=== PATIENT | female | born 1960 | race Caucasian/White ===

== ENCOUNTER 2016-04-27 06:02 | Inpatient (IN) ==
[2016-04-27] MEDS ORDERED: Lidocaine 1% 20 ML MDV ID ONE (06:20)
[2016-04-27] MEDS ORDERED: CeFAZolin Pre 2,000 MG/100 ML 2,000 MG/100 ML BAG IVPB ONE (06:20)
[2016-04-27] MEDS ORDERED: Albuterol 2.5 MG/3 ML NEBULIZER IH ONE ×2 (06:20→13:23)
[2016-04-27] MEDS ORDERED: Heparin 1,000 UNITS/500 mL NS 0 ML ONE ×2 (06:49→07:16)
[2016-04-27] MEDS: Ringers Solution, Lactated 1,000 ML IVC SCH ×2 (06:50→14:25)
--- NOTE | 2016-04-27 07:13 | Anesthesia Evaluation PreOp ---
Date of Encounter: 04/27/16 Time of Encounter: 07:11 - Past History Planned Operation: Right CEA Cardiac History: Angina, HTN, Cardiac Stent Pulmonary History: Smoker, Pack/yr (90 pk yr), COPD, VALENCIA Dx (uses CPAP) POLITICAL ADVISOR History: TIA (no residual), Other (diabetic neuropathy, fairly advanced in feet) Other Medical History: Diabetes Type II Anesthesia History: No Prior Anesthetic Complications, Past Anesthesia (CTR, C/S ) Alcohol Use: none Drug use: none Medications and Allergies PredniSONE 60 mg PO ONCE 3 Days 02/18/16 [Rx] Tizanidine HCl [Zanaflex] 2 mg PO HS #14 cap 03/23/16 [Rx] Allergies tramadol Adverse Reaction (Verified 04/27/16 07:15) Vomiting - Meds/Allergy Pre-op Review Medications Reviewed: Yes Allergies Reviewed: Yes Beta Blockers on Current Med List: Yes If Beta Blockers taken, Date/Time (Last Dose taken): this morning 0530 Anesthesia Results - Labs Laboratory Tests 04/22/16 04/22/16 04/22/16 11:09 11:09 11:09 Hgb 12.9 Hct 38.5 Plt Count 256 PT 11.6 INR 1.1 APTT 34.9 Sodium 139 Potassium 3.9 BUN 8 Creatinine 0.67 - Imaging EKG: report reviewed (incomplete RBBB) Additional studies: negative stress test, LVEF 65% mild diastolic dysfuntion LV, no pulmonary HTN Anesthesia Exam Selected Entries 04/27/16 06:28 Temperature 98.1 F Pulse Rate 86 Respiratory Rate 18 Blood Pressure 159/78 O2 Sat by Pulse Oximetry 96 Height: 1.47m or 55in Weight: 149lbs or 66kg NPO (# of Hours): 8 Pain Scale: 0 Pain Scale Used: Numeric (1 - 10) - HEENT Pupil (Motor): EOMI Mallampati: II Teeth: Edentulous Oral Opening: Greater than 3 - POLITICAL ADVISOR LOC: Oriented POLITICAL ADVISOR Motor: Normal RUE, Normal LUE, Normal RLE, Normal LLE, Normal Face POLITICAL ADVISOR Sensory: Normal: RUE, LUE, Face, Deficit: RLE (decreased bilateral feet), LLE - Cardiac Rhythm: Regular Murmur: None JVD: No - Pulmonary Breath Sounds: bilateral Clear Respiratory Effort: Symmetrical (smells heavily of smoke, smoked this am) Anesthesia Assess/Plan ASA Score: 3 Modified [place] Scale for Level of Consciousness: Cooperative, oriented, and tranquil Anesthetic Plan: General Monitoring Plan: Standard Monitors, A-Line Recovery Plan: ICU (Discussed risks of GA an arterial line. Understands could require blood roducts. Questions answered and agrees to proceed)
[2016-04-27] MEDS ORDERED: Protamine Sulfate 50 MG/5 ML VIAL IVP ONE (07:14)
[2016-04-27] MEDS ORDERED: Bupivacaine-MPF 0.25% 10 ML VIAL ONE (07:14)
[2016-04-27] MEDS ORDERED: Heparin 1,000 UNITS/500 mL NS 1,000 ML ONE (07:15)
[2016-04-27] MEDS ORDERED: Vancomycin 1,000 MG VIAL ONE (07:15)
[2016-04-27] MEDS ORDERED: *HR* Phenylephrine 10 MG/ML VIAL ONE (07:28)
[2016-04-27] MEDS ORDERED: Dexamethasone 4 MG/ML VIAL ONE (07:28)
[2016-04-27] MEDS ORDERED: *HR* Rocuronium Bromide 50 MG/5 ML VIAL ONE (07:28)
[2016-04-27] MEDS ORDERED: Lidocaine -MPF 2% 2 ML VIAL ONE (07:28)
[2016-04-27] MEDS ORDERED: Ondansetron 4 MG/2 ML VIAL ONE (07:28)
[2016-04-27] MEDS ORDERED: *HR* Heparin 5,000 UNIT/ML VIAL ONE ×2 (07:28→09:41)
[2016-04-27] MEDS ORDERED: *HR* Propofol 200 MG/20 ML VIAL IVP ONE (07:32)
[2016-04-27] MEDS ORDERED: *HR* FentaNYL (PF) 100 MCG/2 ML VIAL ONE (07:32)
[2016-04-27] MEDS ORDERED: *HR* Midazolam HCl 2 MG/2 ML VIAL ONE (07:32)
[2016-04-27] MEDS ORDERED: *HR* Remifentanil 2 MG VIAL IVP ONE ×2 (07:35→09:15)
--- NOTE | 2016-04-27 07:35 | History & Physical Report ---
Date of Encounter: 04/27/16 Time of Encounter: 07:25 24 Hour HP Update - Instructions Instructions: If the History and Physical is less than 30 days old and was completed prior to A.M. admission and or procedure and has NOT been updated on calendar day of procedure please complete this update prior to performing procedure. - Update Patient reports changes in Medical Condition: No Changes in assessment/condition: No Changes in Medication: No Preop tests/diagnostics Reviewed: Yes Surgery Remains Indicated: Yes Consent for Planned Operative Procedure(s) Verified: Yes - Pre-Operative Checklist Preoperative Checklist Indicated: Yes Prophylactic Antibiotic Ordered: Yes (VANCOMYCIN DUE TO MRSA RISK) Home Medications Include Beta Denice: Yes Beta Denice Taken Today (Day of Surgery): Yes Beta Denice Taken Yesterday (Day Prior to Surgery): Yes Is VTE Prophylaxis Indicated?: Yes
--- NOTE | 2016-04-27 08:45 | Anesthesia Procedures ---
Date of Encounter: 04/27/16 Time of Encounter: 07:40 Procedures: Anesthesia - Arterial Line Consent obtained: written consent Time out performed: Yes Sedation: Versed (mg): 2 Sedation: Fentanyl (mcg): 100 Supplemental Oxygen via Nasal Cannula (L/min): 2 Size (Gauge): 20 Length (inches): 1 3/4 Technique Used: sterile prep, guide wire technique, direct puncture technique Post-Procedure: line taped into place, dry sterile dressing placed Patient tolerated procedure: well, no complications Complications: none Site: Radial R (attempt x 1, easy)
[2016-04-27] MEDS ORDERED: *HR* Morphine 10 MG/ML VIAL ONE (10:05)
--- NOTE | 2016-04-27 10:56 | Operative Note ---
Date of procedure: 04/27/16 Pre-op diagnosis: 60-79% Right internal carotid artery stenosis Post-op diagnosis: same Procedure: Right carotid endarterectomy with hemashield patch angioplasty. Complications: None Anesthesia: RUA Surgeon: Philippe Panchal Estimated blood loss (cc): 100 Specimen: Right carotid plaque Condition: stable Disposition: PACU Procedure in Detail: Indications: The patient is a 55 year old [place] who was found to have a 60-79 % right internal carotid artery stenosis. 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 A right carotid endarterectomy was recommended. Procedure: The patient was identified in the preoperative area. The risks, benefits, and alternatives of the procedure were discussed and all questions were answered. The patient was then taken to the operating room and placed in supine position on the operating table. After induction of general endotracheal anesthesia, the patient was cleaned and draped in normal sterile fashion. A longitudinal incision was made anterior to the right sternocleidomastoid muscle. Hemostasis was obtained via electrocautery. Through a process of blunt , sharp, and electrocautery dissection, the platysma was traversed. The jugular vein was identified. The facial vein was clamped, divided, tied off with a 2-0 silk suture ligature. The jugular vein was retracted, exposing the carotid bifurcation. Patient received 2000 units of heparin intravenously at this time. Proximal dissection of the common and external carotid arteries were performed circumferentially. Dissection of the internal carotid was performed circumferentially. Vessels loops were passed around the internal and external carotid and an umbilical tape was passed from the common carotid artery. The patient received additional 3000 units of heparin intravenously. Additional heparin was given throughout the case to maintain adequate anticoagulation. After waiting adequate time for it to circulate, the vessels were occluded and a longitudinal arteriotomy was made into the common carotid artery extending into the internal carotid beyond the plaque. Vigorous pulsatile retrograde flow was noted from the internal carotid artery upon release of the loop; therefore, no shunt was placed. A dental Lowman was used to perform a standard endarterectomy. Proximal and distal endpoints were inspected. No elevated flaps were noted. Additional heparin was given throughout the procedure to maintain adequate anticoagulation. A Hemashield patch was cut to fit the defect and sutured in place with running 6 -0 Prolene. Prior to completing the closure, each vessel was flushed and then reoccluded. Heparinized saline was infused into the lumen. The patch was completed. Flow was restored in the external carotid artery, followed the common carotid artery, lastly the internal carotid artery was opened. A low resistance arterialized signal was present within the internal carotid artery beyond the patch. Thrombin and Gelfoam were used to aid in hemostasis. Meticulous hemostasis was obtained throughout the wound with electrocautery. Platelet rich and platelet poor plasma were infused into the wounds. The sternocleidomastoid was reapproximated with interrupted 3-0 Vicryl. Platelet rich and platelet poor plasma were infused into the wound. A TLS drain was brought through a separate stab incision and sutured in place with 0 silk suture. The platysma was reapproximated with running 3-0 Vicryl. Local anesthetic was infused in the skin. A 3-0 Monocryl was used to reapproximate the skin. Sterile dressing was applied. The patient was extubated, taken to the recovery room in stable condition.
[2016-04-27] MEDS ORDERED: *HR* OxyCODONE/APAP 5/325 TABLET PO PRN (11:01)
[2016-04-27] MEDS ORDERED: Ondansetron 4 MG/2 ML VIAL IVP ONE (11:01)
[2016-04-27] MEDS ORDERED: *HR* Promethazine 25 MG/ML VIAL ONE (11:13)
[2016-04-27] MEDS ORDERED: Ringers Solution, Lactated 1,000 ML IVC SCH (11:15)
[2016-04-27] MEDS ORDERED: Metoclopramide 10 MG/2 ML VIAL IVP ONE (11:22)
[2016-04-27] MEDS ORDERED: *HR* Promethazine 25 MG/ML VIAL IVP ONE (11:24)
[2016-04-27] MEDS ORDERED: Albuterol 2.5 MG/3 ML NEBULIZER ONE ×2 (11:27→12:59)
[2016-04-27] MEDS ORDERED: niCARdipine 20 MG/200 ML MLS IVC SCH (12:30)
[2016-04-27] MEDS ORDERED: NiCARdipine 2.5 MG/10 ML Syringe IVPB ONE (12:39)
--- NOTE | 2016-04-27 14:51 | Anesthesia Evaluation Post Op ---
Date of Encounter: 04/27/16 Time of Encounter: 14:50 - Vital Signs Vital Signs: Vital Signs/O2 Sat/Glucose, Most Recent Temp Pulse Resp BP Pulse Ox 99.4 F 93 14 124/63 96 04/27/16 14:21 04/27/16 14:31 04/27/16 14:31 04/27/16 14:31 04/27/16 14:31 Blood Glucose* 184 - Lungs Lungs: Clear Ascult./Percussion - Airway Airway: Non-obstructed - Cardiovascular Regular Rate - Mental Status Mental Status: Alert & Oriented, Answers Appropriately - Pain Pain Scale: 0 Pain Scale used: Numeric (1 - 10) - Nausea Vomiting Nausea Vomiting: Not Present - Hydration Hydration: NPO - Discharge PostOp Status: Transfer Patient to floor
[2016-04-27] MEDS ORDERED: ceFAZolin 2,000 MG in D5% in Water 100 ML IVPB SCH ×2 (15:18→17:00)
[2016-04-27] MEDS ORDERED: *HR* Labetalol 20 MG/4 ML SYRINGE IVP PRN (15:18)
[2016-04-27] MEDS ORDERED: *HR* Morphine 2 MG/ML SYRINGE IVP PRN (15:18)
[2016-04-27] MEDS ORDERED: *HR* Dextrose 50 % in Water (Syg) 50 ML SYRINGE IVP PRN (15:18)
[2016-04-27] MEDS ORDERED: D5% in Water 1,000 ML IV PRN (15:18)
[2016-04-27] MEDS ORDERED: Ondansetron 4 MG/2 ML VIAL IVP PRN (15:18)
[2016-04-27] MEDS ORDERED: Naloxone 0.4 MG/ML INJ IVP PRN (15:18)
[2016-04-27] MEDS ORDERED: *HR* Promethazine 25 MG/ML VIAL IVP PRN (15:18)
[2016-04-27] MEDS ORDERED: Acetaminophen 325 MG TABLET PO PRN (15:18)
[2016-04-27] MEDS ORDERED: Dextrose Gel 15 GM PO PRN ×2 (15:18)
[2016-04-27] MEDS: *HR* Metoprolol 5 MG/5 ML VIAL IVP SCH ×3 (15:51→23:46)
[2016-04-27] MEDS: Insulin LISPRO 300 UNITS/3 ML VIAL SQ SCH ×2 (16:06→16:10)
[2016-04-27] MEDS ORDERED: Vancomycin 1,000 MG in D5% in Water 250 ML IVPB ONE ×2 (18:30→18:45)
[2016-04-27] MEDS: *HR* HYDROcodone/Acet 5/325 mg TABLET PO PRN (19:57)
[2016-04-27] MEDS ORDERED: Insulin LISPRO 300 UNITS/3 ML VIAL SQ SCH (21:00)
[2016-04-27] MEDS ORDERED: Budesonide/Formoterol 80/4.5 MDI IH SCH (21:00)
[2016-04-27] MEDS ORDERED: tiZANidine 4 MG TABLET PO SCH (21:00)
[2016-04-28] MEDS ORDERED: ceFAZolin 2,000 MG in D5% in Water 100 ML IVPB ONE
[2016-04-28] MEDS: *HR* OxyCODONE Immed Rel 5 MG TABLET PO PRN ×2 (00:07→09:31)
[2016-04-28] MEDS: *HR* HYDROcodone/Acet 5/325 mg TABLET PO PRN (05:42)
[2016-04-28] MEDS: *HR* Metoprolol 5 MG/5 ML VIAL IVP SCH (05:42)
[2016-04-28] MEDS ORDERED: *HR* Heparin 5,000 UNIT/ML VIAL SQ SCH ×2 (06:00)
[2016-04-28 06:47] VITALS: BP 164/89
[2016-04-28] MEDS ORDERED: Tiotropium 18 MCG inhalation IH SCH (07:00)
--- NOTE | 2016-04-28 07:39 | Discharge Summary ---
Date of Encounter: 04/28/16 Time of Encounter: 07:30 - Discharge Diagnosis (1) Carotid stenosis, right Priority: Primary Status: Chronic Comments: The patient is postoperative day #1 after right carotid endarterectomy. She is alert without neurologic deficits. She has no hematoma. She will be discharged today. (2) Essential hypertension Priority: Secondary Status: Chronic Comments: She was counseled regarding atherosclerotic risk factor reduction. (3) Mixed hyperlipidemia Priority: Secondary Status: Chronic (4) Type 2 diabetes mellitus with other circulatory complications Priority: Secondary Status: Chronic (5) Tobacco abuse Priority: Secondary Status: Chronic Comments: She was counseled regarding smoking cessation. (6) COPD (chronic obstructive pulmonary disease) with emphysema Priority: Secondary Status: Chronic Qualifiers: Emphysema type: panlobular Qualified Code(s): J43.1 - Panlobular emphysema (7) Atherosclerosis of [place] arteries of extremities with intermittent claudication, bilateral legs Priority: Secondary Status: Chronic - Discharge Medications Prescriptions: HYDROcodone/Acet 5/325 mg [Sapphire 5-325 mg] 1 tab PO Q4H PRN #30 tablet PRN Reason: POSTOPERATIVE PAIN Home Medications: Tizanidine HCl [Zanaflex] 2 mg PO HS #14 cap 03/23/16 [Rx] Albuterol Sulfate [Albuterol Inhaler] 2 puff IH Q4HR PRN 04/27/16 [History] Aspirin 81 mg PO DAILY 04/27/16 [History] Atorvastatin Calcium [Lipitor] 80 mg PO HS 04/27/16 [History] Clopidogrel [Plavix] 75 mg PO DAILY 04/27/16 [History] Fenofibrate [Lofibra] 160 mg PO DAILY 04/27/16 [History] Fluticasone/Salmeterol [Advair 250-50 Diskus] 2 puff IH BID 04/27/16 [History] Furosemide [Lasix] 20 mg PO DAILY 04/27/16 [History] Isosorbide MONOnitrate (24 HR) [Imdur] 60 mg PO DAILY 04/27/16 [History] Lisinopril [Zestril] 20 mg PO DAILY 04/27/16 [History] Metoprolol XL (24 HR) Succ [Toprol Xl] 50 mg PO DAILY 04/27/16 [History] Sitagliptin Phos/Metformin HCl [Janumet 50-500 mg Tablet] 1 each PO DAILY [History] Tiotropium [Spiriva] 18 mcg IH 0700 04/27/16 [History] HYDROcodone/Acet 5/325 mg [Sapphire 5-325 mg] 1 tab PO Q4H PRN #30 tablet 04/28/16 [Rx] Allergies/Adverse Reactions: Allergies tramadol Adverse Reaction (Verified 04/27/16 07:15) Vomiting Date of admission: 04/27/16 15:15 Primary care physician: Benita Marte CNP Procedure(s) Performed: Right carotid endarterectomy Discharging clinician: Philippe Panchal Anticipated date of discharge: 04/28/16 - Patient Status Disposition: Home, Self-Care Condition: Good Functional capacity at discharge: independent ambulation Overall status at discharge: patient is back to baseline - Discharge Instructions Instructions: Hydrocodone (By mouth), Diabetes Mellitus Type 2 in Adults (DC), Peripheral Vascular Disorders (DC), Chronic Hypertension (DC) Follow Up With: Benita Marte CNP [Primary Care Provider] - 05/04/16 10:15 am Philippe Panchal MD [Partnered Physician] - 05/10/16 9:40 am Additional Instructions: May shower 04/29/16. Wash wound gently and pat to dry. Apply dry gauze bandage as needed. Call [phone] with questions or concerns. - Diet and Activity Activity: increase activity as tolerated Diet: diabetic diet - Hospital Course Hospital course: Ms. Rosenthal is a 55 year old female who was admitted on 04/27/16. She underwent a right carotid endarterectomy. She tolerated the procedure well. She was discharged in stable condition on postoperative day #1 without complication. - Time Spent with Patient Total time spent providing and/or coordinating discharge services: Exam Vital Signs, Last 4 Hours Temp Pulse Resp BP Pulse Ox 04/28/16 06:42 98.5 F 80 16 164/89 99 04/28/16 03:52 99.0 F 96 18 153/79 98 General: Present: Conversant, No Apparent Distress HEENT: Present: Atraumatic, Trachea midline, Pupils equal Neck: Present: Other (Ecchymosis at right neck and chest without significant hematoma, incision clean, dry and intact without erythema). Absent: JVD, Tracheal deviation Cardiac: Present: Reg Rate and Rhythm Lungs: Present: Normal Breath Sounds Neuro: Present: Alert and responsive, Other (motor and sensory functionat baseline. No new neurologic deficits) Abdomen: Present: Soft, Non-tender Vascular: Present: Normal capillary refill. Absent: Cyanosis, Edema - VTE Documentation of Mechanical Device: Intermittent pneumatic compression device
[2016-04-28] MEDS ORDERED: Fenofibrate 54 MG TABLET PO SCH (09:00)
[2016-04-28] MEDS ORDERED: Isosorbide MONOnitrate (24 HR) 60 MG TAB.ER.24H PO SCH (09:00)
[2016-04-28] MEDS ORDERED: SITAGLIPTIN PHOS PO SCH (09:00)
[2016-04-28] MEDS ORDERED: Metoprolol XL (24 HR) Succ 50 MG TAB.ER.24H PO SCH (09:00)
[2016-04-28] MEDS ORDERED: Furosemide 20 MG TABLET PO SCH (09:00)
[2016-04-28] MEDS ORDERED: METFORMIN HCL PO SCH (09:00)
[2016-04-28] MEDS ORDERED: Aspirin 81 MG TAB.CHEW PO SCH (09:00)
[2016-04-28] MEDS ORDERED: Lisinopril 20 MG TABLET PO SCH (09:00)
[2016-04-28] MEDS: Insulin LISPRO 300 UNITS/3 ML VIAL SQ SCH (09:25)
[2016-04-28] MEDS ORDERED: FLU VACC QS2016-17 36MOS UP/PF 0.5 ML SYRINGE IM ONE (10:12)
== END 2016-04-28 11:01 | disposition home or self-care (01) | DRG 39 ==
LOC: SAMDAY 06:02 → 2NNU 15:15
PROVIDERS: ADMIT Surgery; ATTEND Surgery

== ENCOUNTER 2017-12-29 17:51 | Observation (INO) ==
--- NOTE | 2017-12-29 17:54 | Emergency Department Note ---
Disposition Clinical Impression: Chest pain Qualifiers: Chest pain type: unspecified Qualified Code(s): R07.9 - Chest pain, unspecified Disposition: Admitted As Inpatient Condition: Good Time of Disposition: 19:47 General Adult HPI - General Stated complaint: CP Time Seen by Provider: 12/29/17 17:53 Source: patient Mode of arrival: ambulatory Limitations: no limitations Nursing Notes Reviewed: Yes Vital Signs Reviewed: Yes - History of Present Illness HPI Narrative: Female patient presenting tumors from complaining of chest pain is in the center of her chest. No radiation. Does have associated dyspnea on exertion. States the pain started yesterday. Gets worse whenever she ambulates. She does have a history of coronary artery disease as well as a stroke. She has had stents placed around 10 years ago. She does currently take Plavix and aspirin daily. She has a history of COPD as well. And peripheral artery disease. She started having chest pain yesterday. She states that occasionally whenever she sits down the pain does go away. Whenever she is ambulating she is extremely short of breath and feels like her heart is racing. This is been present for about 3 weeks. She denies any fevers or chills. Did have an episode of vomiting ass ociated with the chest pain yesterday. She ambulated to the room and stated that she was having the pain while she ambulated there. However in the room resting on the bed she states the pain has eased off and she is not short of breath currently. She is not currently on oxygen. She denies any fevers or chills. Denies any diarrhea there is been no vomiting today. No rashes. She denies any swelling to her extremity. She does not report a history of congestive heart failure. Denies any trouble urinating or defecating. No blood in her urine or stool. - Related Data Home Medications Medication Instructions Recorded Confirmed Albuterol Sulfate [Albuterol 2 puff IH Q4HR PRN 04/27/16 12/29/17 Inhaler] Aspirin 81 mg PO DAILY 04/27/16 12/29/17 Atorvastatin Calcium [Lipitor] 80 mg PO HS 04/27/16 12/29/17 Clopidogrel [Plavix] 75 mg PO DAILY 04/27/16 12/29/17 Fenofibrate [Lofibra] 160 mg PO DAILY 04/27/16 12/29/17 Furosemide [Lasix] 20 mg PO DAILY 04/27/16 12/29/17 Isosorbide MONOnitrate (24 HR) 60 mg PO DAILY 04/27/16 12/29/17 [Imdur] Lisinopril [Zestril] 20 mg PO DAILY 04/27/16 12/29/17 Metoprolol XL (24 HR) Succ [Toprol 50 mg PO DAILY 04/27/16 12/29/17 Xl] Allergies Allergy/AdvReac Type Severity Reaction Status Date / Time tramadol AdvReac Vomiting Verified 12/29/17 14:05 All systems ED: reviewed and negative except as stated. Review of Systems: As Per HPI Constitutional: Denies: fever, chills Cardiovascular: Reports: chest pain, palpitations, dyspnea on exertion. Denies: syncope Respiratory: Reports: cough (Chronic.), dyspnea. Denies: sputum production Gastrointestinal: Denies: nausea, vomiting, diarrhea Genitourinary: Denies: urgency, dysuria, frequency Musculoskeletal: Denies: back pain, neck pain Integumentary: Denies: rash Past Medical History - Past Medical History Attestation: Yes The following information was validated with the patient. Source: patient Medical history: Reports: COPD, coronary artery disease, diabetes, hypertension Surgical history: Reports: , cholecystectomy Psychiatric history: Reports: depression - Social History Smoking Status: Current every day smoker Smokeless Tobacco Status: No Alcohol use: Reports: none Drug use: Reports: none Physical Exam - General Limitations: no limitations General appearance: alert, in no apparent distress - Head Head exam: atraumatic, normocephalic, normal inspection - Eye Eye exam: Present: normal appearance, PERRL, EOMI - ENT ENT exam: normal exam, normal oropharynx, mucous membranes moist - Neck Neck exam: Present: normal inspection, full ROM, trachea midline - Chest Chest inspection: Present: normal inspection, symmetric chest wall rise. Absent: tenderness - Respiratory Respiratory exam: Present: wheezes (throughout), prolonged expiratory phase. Ab sent: respiratory distress, accessory muscle use - Cardiovascular Cardiovascular exam: Present: regular rate, normal rhythm, normal heart sounds - Abdominal Exam Abdominal exam: Present: soft, Non-Tender. Absent: tenderness, distention, guarding, rebound, rigidity, organomegaly, Castellon's sign, Rovsing's sign, tenderness at McBurney's Point - Extremities Exam Extremities exam: Present: normal inspection, full ROM, normal capillary refill. Absent: tenderness, pedal edema - Back Exam Back exam: Present: normal inspection, full ROM. Absent: tenderness - Neurological Exam Neurological exam: Present: alert, oriented X3 - Psychiatric Psychiatric exam: Present: normal affect, normal mood - Skin Skin exam: Present: warm, dry, intact, normal color. Absent: rash Course Course Narrative: Female patient with a concerning history yesterday of nausea shortness of breath associated with her chest pain. She does have a history of stents placed several years ago. She also has a history of COPD however her cough has not increased. Chest some wheezing which resolved with a DuoNeb. His nose comfortable while resting in bed however her chest pain is exertional and is associated with shortness of breath. We will admit patient to the hospital for further cardiac evaluation. She is agreeable with this. We did discuss that there was a concerning nodule in her chest x-ray. She states that she has had several recently. She is been made aware that she needs to have this followed up. - Consultations Consultation #1: Dr Schmidt accepted Pt in stable condition. Time: 20:23 Vital Signs Temperature 97.9 F 12/29/17 17:58 Pulse Rate 98 12/29/17 17:58 Respiratory Rate 19 12/29/17 17:58 Blood Pressure 163/91 12/29/17 17:58 O2 Sat by Pulse Oximetry 99 12/29/17 17:58 Temperature 97.9 F 12/29/17 17:58 Pulse Rate 98 12/29/17 17:58 Respiratory Rate 16 12/29/17 18:50 Blood Pressure 163/91 12/29/17 17:58 O2 Sat by Pulse Oximetry 97 12/29/17 18:50 Oxygen Delivery Oxygen Delivery Room Air Medical Decision Making - Medical Records Medical records reviewed: Yes I reviewed the patient's medical records. - Lab Data Lab results reviewed: Yes I reviewed the patient's lab results. Result diagrams: 12/29/17 18:24 12/29/17 18:24 Lab Results 12/29/17 12/29/17 12/29/17 Range/Units 18:24 18:24 18:24 WBC 7.2 (4.3-11.1) K/mcL RBC 4.09 (3.82-4.97) M/mcL Hgb 11.6 (11.5-15.4) g/dL Hct 34.6 L (35.3-44.9) % MCV 84.6 (83.0-100.0) fL MCH 28.4 (28.0-33.3) pg MCHC 33.5 (31.6-35.5) g/dL RDW 13.2 (11.5-14.5) % Plt Count 223 (140-400) K/mcL MPV 10.1 (9.4-12.4) fL Immature Gran % 0.1 (0-4) % Seg Neutrophils % 58.9 % Lymphocytes % 33.1 % Monocytes % 5.8 % Eosinophils % 1.7 % Basophils % 0.4 % Neutrophils # 4.2 (1.6-8.9) K/mcL Lymphocytes # 2.4 (0.6-4.6) K/mcL Monocytes # 0.4 (0.0-1.3) K/mcL Eosinophils # 0.1 (0.0-0.6) K/mcL Basophils # 0.0 (0.0-0.2) K/mcL PT 11.6 (9.4-12.1) Seconds INR 1.0 APTT 34.1 (26.0-36.0) Seconds Sodium 135 L (136-145) mEq/L Potassium 4.0 (3.5-5.1) mEq/L Chloride 101 (98-107) mEq/L Carbon Dioxide 29 (23-29) mEq/L BUN 12 (6-20) mg/dL Creatinine 0.52 L (0.60-1.20) mg/dL Est GFR ( Amer) > 60 (> 60) Est GFR (Non-Af Amer) > 60 (> 60) BUN/Creatinine Ratio 23 (6-26) Glucose 215 H (70-105) mg/dL Calculated Osmolality 286 (280-300) Calcium 9.7 (8.6-10.3) mg/dL Troponin I < 0.03 (< 0.04) ng/mL B-Natriuretic Peptide (Less than 100) pg/mL 12/29/17 Range/Units 18:24 WBC (4.3-11.1) K/mcL RBC (3.82-4.97) M/mcL Hgb (11.5-15.4) g/dL Hct (35.3-44.9) % MCV (83.0-100.0) fL MCH (28.0-33.3) pg MCHC (31.6-35.5) g/dL RDW (11.5-14.5) % Plt Count (140-400) K/mcL MPV (9.4-12.4) fL Immature Gran % (0-4) % Seg Neutrophils % % Lymphocytes % % Monocytes % % Eosinophils % % Basophils % % Neutrophils # (1.6-8.9) K/mcL Lymphocytes # (0.6-4.6) K/mcL Monocytes # (0.0-1.3) K/mcL Eosinophils # (0.0-0.6) K/mcL Basophils # (0.0-0.2) K/mcL PT (9.4-12.1) Seconds INR APTT (26.0-36.0) Seconds Sodium (136-145) mEq/L Potassium (3.5-5.1) mEq/L Chloride (98-107) mEq/L Carbon Dioxide (23-29) mEq/L BUN (6-20) mg/dL Creatinine (0.60-1.20) mg/dL Est GFR ( Amer) (> 60) Est GFR (Non-Af Amer) (> 60) BUN/Creatinine Ratio (6-26) Glucose (70-105) mg/dL Calculated Osmolality (280-300) Calcium (8.6-10.3) mg/dL Troponin I (< 0.04) ng/mL B-Natriuretic Peptide 72 (Less than 100) pg/mL - Radiology Data Radiology results reviewed: Yes I reviewed the patient's radiology results. Chest X-Ray 12/29/17 18:13 IMPRESSION: New somewhat suspicious nodule, lateral right apex. No acute airspace disease. RECOMMENDATION: To confirm a true lesion, upright PA and lateral views are recommended with removal of the cardiac monitoring leads and pads. If still present, elective follow-up thin-section chest CT would be recommended. D/ / Rene Faith MD / Rene Faith MD Interpreting Provider: Rene Faith MD - EKG Data EKG #1 EKG attestation: Yes I reviewed and interpreted this EKG. EKG results narrative: Normal sinus rhythm at a rate of 92. IA interval is 181. QRS duration is 87. QT is 390. QTC is 483. No signs of acute ischemia. Good R-wave progression. Does have some ST depression in lead V4. Patient has some flattened T waves as well.
--- NOTE | 2017-12-29 18:01 | Emergency Department Note ---
Disposition Clinical Impression: Chest pain Disposition: Admitted As Inpatient Condition: Good General Adult HPI - General Stated complaint: CP Time Seen by Provider: 12/29/17 17:53 - Related Data Home Medications Medication Instructions Recorded Confirmed Albuterol Sulfate [Albuterol 2 puff IH Q4HR PRN 04/27/16 12/29/17 Inhaler] Aspirin 81 mg PO DAILY 04/27/16 12/29/17 Atorvastatin Calcium [Lipitor] 80 mg PO HS 04/27/16 12/29/17 Clopidogrel [Plavix] 75 mg PO DAILY 04/27/16 12/29/17 Fenofibrate [Lofibra] 160 mg PO DAILY 04/27/16 12/29/17 Furosemide [Lasix] 20 mg PO DAILY 04/27/16 12/29/17 Isosorbide MONOnitrate (24 HR) 60 mg PO DAILY 04/27/16 12/29/17 [Imdur] Lisinopril [Zestril] 20 mg PO DAILY 04/27/16 12/29/17 Metoprolol XL (24 HR) Succ [Toprol 50 mg PO DAILY 04/27/16 12/29/17 Xl] Allergies Allergy/AdvReac Type Severity Reaction Status Date / Time tramadol AdvReac Vomiting Verified 12/29/17 14:05 Past Medical History - Past Medical History Medical history: Reports: COPD, coronary artery disease, diabetes, hypertension Surgical history: Reports: , cholecystectomy Psychiatric history: Reports: depression - Social History Smoking Status: Current every day smoker Smokeless Tobacco Status: No Alcohol use: Reports: none Drug use: Reports: none Course Vital Signs Temperature 97.9 F 12/29/17 17:58 Pulse Rate 98 12/29/17 17:58 Respiratory Rate 19 12/29/17 17:58 Blood Pressure 163/91 12/29/17 17:58 O2 Sat by Pulse Oximetry 99 12/29/17 17:58 Temperature 97.9 F 12/29/17 17:58 Pulse Rate 98 12/29/17 17:58 Respiratory Rate 16 12/29/17 18:50 Blood Pressure 163/91 12/29/17 17:58 O2 Sat by Pulse Oximetry 97 12/29/17 18:50 Oxygen Delivery Oxygen Delivery Room Air Medical Decision Making - Lab Data Result diagrams: 12/29/17 18:24 12/29/17 18:24 Lab Results 12/29/17 12/29/17 12/29/17 Range/Units 18:24 18:24 18:24 WBC 7.2 (4.3-11.1) K/mcL RBC 4.09 (3.82-4.97) M/mcL Hgb 11.6 (11.5-15.4) g/dL Hct 34.6 L (35.3-44.9) % MCV 84.6 (83.0-100.0) fL MCH 28.4 (28.0-33.3) pg MCHC 33.5 (31.6-35.5) g/dL RDW 13.2 (11.5-14.5) % Plt Count 223 (140-400) K/mcL MPV 10.1 (9.4-12.4) fL Immature Gran % 0.1 (0-4) % Seg Neutrophils % 58.9 % Lymphocytes % 33.1 % Monocytes % 5.8 % Eosinophils % 1.7 % Basophils % 0.4 % Neutrophils # 4.2 (1.6-8.9) K/mcL Lymphocytes # 2.4 (0.6-4.6) K/mcL Monocytes # 0.4 (0.0-1.3) K/mcL Eosinophils # 0.1 (0.0-0.6) K/mcL Basophils # 0.0 (0.0-0.2) K/mcL PT 11.6 (9.4-12.1) Seconds INR 1.0 APTT 34.1 (26.0-36.0) Seconds Sodium 135 L (136-145) mEq/L Potassium 4.0 (3.5-5.1) mEq/L Chloride 101 (98-107) mEq/L Carbon Dioxide 29 (23-29) mEq/L BUN 12 (6-20) mg/dL Creatinine 0.52 L (0.60-1.20) mg/dL Est GFR ( Amer) > 60 (> 60) Est GFR (Non-Af Amer) > 60 (> 60) BUN/Creatinine Ratio 23 (6-26) Glucose 215 H (70-105) mg/dL Calculated Osmolality 286 (280-300) Calcium 9.7 (8.6-10.3) mg/dL Troponin I < 0.03 (< 0.04) ng/mL B-Natriuretic Peptide (Less than 100) pg/mL 12/29/17 Range/Units 18:24 WBC (4.3-11.1) K/mcL RBC (3.82-4.97) M/mcL Hgb (11.5-15.4) g/dL Hct (35.3-44.9) % MCV (83.0-100.0) fL MCH (28.0-33.3) pg MCHC (31.6-35.5) g/dL RDW (11.5-14.5) % Plt Count (140-400) K/mcL MPV (9.4-12.4) fL Immature Gran % (0-4) % Seg Neutrophils % % Lymphocytes % % Monocytes % % Eosinophils % % Basophils % % Neutrophils # (1.6-8.9) K/mcL Lymphocytes # (0.6-4.6) K/mcL Monocytes # (0.0-1.3) K/mcL Eosinophils # (0.0-0.6) K/mcL Basophils # (0.0-0.2) K/mcL PT (9.4-12.1) Seconds INR APTT (26.0-36.0) Seconds Sodium (136-145) mEq/L Potassium (3.5-5.1) mEq/L Chloride (98-107) mEq/L Carbon Dioxide (23-29) mEq/L BUN (6-20) mg/dL Creatinine (0.60-1.20) mg/dL Est GFR ( Amer) (> 60) Est GFR (Non-Af Amer) (> 60) BUN/Creatinine Ratio (6-26) Glucose (70-105) mg/dL Calculated Osmolality (280-300) Calcium (8.6-10.3) mg/dL Troponin I (< 0.04) ng/mL B-Natriuretic Peptide 72 (Less than 100) pg/mL Attestation Statement - Attestation Attestation: I examined this patient and my medical decision-making was reviewed with the Resident Physician. I agree with the documented findings, disposition and treatment plan as described except to the extent set forth below. Patient presents to the emergency department with a chief complaint of chest pain. Patient had an episode yesterday. She describes it as a burning sensation from the inside out. It radiated to her neck and back. She states her last about 5 minutes. It was followed by her breaking out in a cold sweat and an episode of nausea but no vomiting. Patient states no chest pain today but she is continued to be short of breath. No fever. On examination she is in no acute distress. She does cough on occasion. Lungs diminished but clear. Heart regular rate and rhythm. Plan. Cardiac workup. Patient with history coronary disease with one stent placement in the past. Likely admission. EKG has some new anterolateral ST depressions. She is currently pain-free. Troponin negative. Admitted to medicine.
[2017-12-29] MEDS ORDERED: Aspirin 81 MG TAB.CHEW PO ONE (18:13)
[2017-12-29] MEDS ORDERED: Ipratropium/Albuterol Neb 3 ML IH ONE (18:13)
[2017-12-29 18:36] LABS: Basophils % 0.4 %; Eosinophils # 0.1 K/mcL (0.0-0.6); Eosinophils % 1.7 %; Hematocrit 34.6 % (35.3-44.9); Hemoglobin 11.6 g/dL (11.5-15.4); Immature Granulocytes % 0.1 % (0-4); Lymphocytes # 2.4 K/mcL (0.6-4.6); Lymphocytes % 33.1 %; Mean Corpuscular HGB Conc 33.5 g/dL (31.6-35.5); Mean Corpuscular Hemoglobin 28.4 pg (28.0-33.3); Mean Corpuscular Volume 84.6 fL (83.0-100.0); Mean Platelet Volume 10.1 fL (9.4-12.4); Monocytes # 0.4 K/mcL (0.0-1.3); Monocytes % 5.8 %; Neutrophils # 4.2 K/mcL (1.6-8.9); Platelet Count 223 K/mcL (140-400); Red Blood Count 4.09 M/mcL (3.82-4.97); Red Cell Distribution Width 13.2 % (11.5-14.5); Segmented Neutrophils % 58.9 %
[2017-12-29 18:50] LABS: Prothrombin Time 11.6 Seconds (9.4-12.1)
[2017-12-29 18:53] LABS: Activated Partial Thrombo Time 34.1 Seconds (26.0-36.0)
[2017-12-29 18:56] LABS: BUN/Creatinine Ratio 23 (6-26); Blood Urea Nitrogen 12 mg/dL (6-20); Calcium 9.7 mg/dL (8.6-10.3); Carbon Dioxide 29 mEq/L (23-29); Chloride 101 mEq/L (98-107); Glucose 215 mg/dL (70-105); Osmolality,Calculated 286 (280-300); Sodium 135 mEq/L (136-145); eGFR For Non-African Americans > 60 (> 60)
[2017-12-29 18:57] LABS: Troponin I < 0.03 ng/mL (< 0.04)
[2017-12-29] MEDS ORDERED: Naloxone 0.4 MG/ML INJ IVP PRN (20:43)
[2017-12-29] MEDS ORDERED: *HR* Dextrose 50 % in Water (Syg) 50 ML SYRINGE IVP PRN (20:50)
[2017-12-29] MEDS ORDERED: D5% in Water 1,000 ML IVC PRN (20:50)
[2017-12-29] MEDS ORDERED: Dextrose Gel 15 GM/37.5 ML TUBE PO PRN ×2 (20:50)
[2017-12-29] MEDS ORDERED: Insulin LISPRO 300 UNITS/3 ML VIAL SQ SCH (21:00)
--- NOTE | 2017-12-29 22:25 | Internal Med History&Physical ---
<Shasha Beverly - Last Filed: 12/30/17 01:01> Date of Encounter: 12/29/17 Time of Encounter: 21:45 Internal Medicine - H&P: HPI Chief complaint: chest pain Admitted From: Home Plans for Post Hospital Care: Home History of present illness: Ms. Rosenthal is a 57-year-old female with PMH of CAD with stent x1, PVD, CVA with right carotid artery stent 2016, HTN, and DM who presented to the emergency de partment with complaints of chest pain. Patient states that yesterday she was riding in the car when she suddenly experienced intense chest pain described as tight and burning. The pain was centrally located in her chest and spread laterally including both upper extremities and between her shoulder blades. The pain lasted for less than 10 minutes for going away on its own; it was not reproducible, pleuritic, or positional and there were no relieving or aggravating factors. Admits diaphoresis, nausea, dizziness, shortness of breath, and weakness associated with chest pain. Denies associated emesis. She has chronic anginal chest pain, which feels very different than what she experienced yesterday. Patient also has a degree of shortness of breath at baseline due to COPD, but shortness of breath experienced yesterday was more intense and described as feeling like she had run a marathon. She notes her dyspnea has been worse than usual on exertion x1 month, denies orthopnea or lower extremity swelling. She is not currently experiencing chest pain or shortness of breath. The patient denies any previous h/o LA. Shes had one cardiac stent placed, not recall what year that knows that it has been within last 10 years. On review of old records patient had a [facility] in 2014. March 2016 the patient underwent nuclear stress test that was negative for ischemia or infarct with gated EF 70%. November 2016 a carotid duplex was performed showing 40-59% stenosis of right carotid artery. ED course: Patient presented afebrile and hemodynamically stable. CXR significant for new solitary nodule at lateral apex of right lung. EKG showed NSR, HR 92, ST depression in lead V4, but no signs of acute ischemia. Metabolic panel was unremarkable and first troponin was negative. She was admitted to the hospitalist service for further evaluation and care of chest pain. Past Med Surg Social Fam HX - Past Medical History Medical history: COPD, coronary artery disease, diabetes, hypertension Additional medical history: sleep apnea with bipap. pvd Psychiatric history: depression - Past Surgical History Surgical History: , cholecystectomy Additional surgical history: heart stent. bilateral carpal tunnel - Social History Smoking Status: Current every day smoker Smokeless Tobacco Status: No Alcohol use: none Drug use: none Internal Medicine - H&P: Meds Albuterol Sulfate [Albuterol Inhaler] 2 puff IH Q4HR PRN 04/27/16 [History] Aspirin 81 mg PO DAILY 04/27/16 [History] Atorvastatin Calcium [Lipitor] 80 mg PO HS 04/27/16 [History] Clopidogrel [Plavix] 75 mg PO DAILY 04/27/16 [History] Fenofibrate [Lofibra] 160 mg PO DAILY 04/27/16 [History] Furosemide [Lasix] 20 mg PO DAILY 04/27/16 [History] Isosorbide MONOnitrate (24 HR) [Imdur] 60 mg PO DAILY 04/27/16 [History] Lisinopril [Zestril] 20 mg PO BID 04/27/16 [History] Metoprolol XL (24 HR) Succ [Toprol Xl] 50 mg PO BID 04/27/16 [History] Allergy/AdvReac Type Severity Reaction Status Date / Time tramadol AdvReac Vomiting Verified 12/29/17 14:05 All Systems PM: A 10-system review of systems was performed and is negative for pertinent findings except as documented above in the HPI. - Constitutional Constitutional: as per HPI, no chills, no fever(s) - EENT Eyes: as per HPI, loss of peripheral vision (left eye d/t CVA) - Cardiovascular Cardiovascular ROS IM: as per HPI, no irregular heart rhythm, no palpitations - Respiratory Respiratory: as per HPI, cough (at baseline), no excessive phlegm production - Gastrointestinal Gastrointestinal: as per HPI, heartburn, no abdominal pain, no change in bowel habits, no constipation, no diarrhea - Genitourinary Genitourinary: no difficulty voiding, no dysuria - Musculoskeletal Musculoskeletal ROS IM: as per HPI, no numbness, no stiffness - Neurological Neurological ROS: as per HPI - Constitutional Vitals: Temp Pulse Resp BP Pulse Ox 98.0 F 75 15 123/69 97 12/29/17 21:22 12/29/17 21:22 12/29/17 21:22 12/29/17 21:22 12/29/17 21:22 Exam: General: vital signs noted, no acute distress, non-toxic appearance, AAO x3 Head: normocephalic, atraumatic Eyes: EOMI, PERRL, sclera anicteric ENT: moist oral mucous membranes Neck: supple, trachea midline Cardio: RRR; no murmurs, gallops, rubs; + S1/S2; no edema Chest: symmetric chest rise Pulm: CTAB, decreased breath sounds left apex; no wheezes, rhonchi, rales; no respiratory distress Abd: soft, nontender, nondistended, normal bowel sounds Neuro: CN II-XII grossly intact, no focal deficits, moves all extremities spontaneously; mentation intact Ext: no lower extremity edema; 2+/4 radial pulses equal bilaterally MSK: no visible deformities, no joint swelling Psych: normal mood and affect, cooperative, answers questions appropriately, doesnt appear anxious or agitated Skin: warm, dry, no rash; several small skin lesions of forearms that appear to be healing Internal Med - H&P Results - Labs CBC & Chem 7: 12/29/17 18:24 12/29/17 18:24 Labs: Short CBC 12/29/17 Range/Units 18:24 WBC 7.2 (4.3-11.1) K/mcL Hgb 11.6 (11.5-15.4) g/dL Hct 34.6 L (35.3-44.9) % Plt Count 223 (140-400) K/mcL Neutrophils # 4.2 (1.6-8.9) K/mcL BMP 12/29/17 18:24 Sodium 135 L Potassium 4.0 Chloride 101 Carbon Dioxide 29 BUN 12 Creatinine 0.52 L Glucose 215 H Calcium 9.7 Cardiac Enzymes 12/29/17 Range/Units 18:24 Troponin I < 0.03 (< 0.04) ng/mL - Impressions ITS Impressions Chest X-Ray 12/29/17 18:13 IMPRESSION: New somewhat suspicious nodule, lateral right apex. No acute airspace disease. RECOMMENDATION: To confirm a true lesion, upright PA and lateral views are recommended with removal of the cardiac monitoring leads and pads. If still present, elective follow-up thin-section chest CT would be recommended. D/ / Rene Faith MD / Rene Faith MD Interpreting Provider: Rene Faith MD - Assessment and plan (1) Chest pain Current Visit: Yes Status: Acute Assessment and plan: Currently free of chest pain First troponin negative and initial EKG doesn't show clear signs of acute ischemia High suspicion for chest pain of cardiac origin given her multiple risk factors: age, sex, tobacco use, diabetes, hypertension, and known atherosclerotic disease. Although her 2017 cardiac testing wasn't indicative of ischemia or infarct, I believe there is cause for concern for the reasons above and because her new episode of chest pain presented differently and more intensely than the anginal chest pain she's familiar with. - Continuous cardiac and pulse ox monitoring - Trend troponins 2 - Repeat EKG - Cardiology consult placed, recommendations appreciated - Echocardiogram to establish baseline and for possibility of ischemic cardiomyopathy Qualifiers: Chest pain type: unspecified Qualified Code(s): R07.9 - Chest pain, u nspecified (2) Essential hypertension Current Visit: No Status: Chronic Assessment and plan: Stable, chronic - Continue home beta galilea - Hold lasix and lisinopril for now as patient will be receiving IV contrast (3) Type 2 diabetes mellitus with other circulatory complications Current Visit: No Status: Chronic Assessment and plan: Low dose sliding scale insulin Accu-Cheks Q6H while NPO (4) Sleep apnea in adult Current Visit: Yes Status: Acute Assessment and plan: Wears CPAP with oxygen nightly, she doesn't know how much oxygen - CPAP ordered (5) COPD (chronic obstructive pulmonary disease) with emphysema Current Visit: No Status: Chronic Assessment and plan: DuoNeb Q6H PRN Qualifiers: Emphysema type: panlobular Qualified Code(s): J43.1 - Panlobular emphysema (6) Tobacco abuse Current Visit: No Status: Chronic Assessment and plan: Currently smokes 1 PPD Has been smoking for 45 years--at one time 4-5 ppd (7) Atherosclerosis of [place] arteries of extremities with intermittent claudication, bilateral legs Current Visit: No Status: Chronic (8) Solitary pulmonary nodule Current Visit: Yes Status: Acute Assessment and plan: Located on lateral aspect of right lung apex--follow-up imaging with CT recommended on radiology report Patient made aware of this while in the ED, reportedly patient had known about this nodule High risk for lung cancer given her age and significant history of tobacco abuse - CT chest with IV contrast - Time Spent With Patient Total time spent is greater than 50% in coordination of care (as documented) at patient's floor/unit and/or counseling patient: <Sd Schmidt - Last Filed: 12/30/17 02:41> Date of Encounter: 12/30/17 Time of Encounter: 00:35 - Constitutional Constitutional: no fever(s) - EENT Eyes: no change in vision Nose, mouth and throat: no nasal congestion, no sore throat - Cardiovascular Cardiovascular ROS IM: chest pain, diaphoresis, dyspnea - Respiratory Respiratory: no hemoptysis, no chest congestion, no excessive phlegm production, no change in phlegm color - Gastrointestinal Gastrointestinal: no diarrhea, no vomiting - Genitourinary Genitourinary: no dysuria, no flank pain - Neurological Neurological ROS: no focal weakness, no frequent falls, no headache(s) - Psychiatric Psychiatric: no anxiety, no depression - Endocrine Endocrine IM: no polydipsia, no polyuria - Allergic/Immunologic Allergic/Immunologic: no GI upset with certain foods - Constitutional Vitals: Temp Pulse Resp BP Pulse Ox 98.0 F 75 15 123/69 97 12/29/17 21:22 12/29/17 21:22 12/29/17 21:22 12/29/17 21:22 12/29/17 21:22 General appearance: Present: cooperative, A&O X 3, pleasant, no acute distress - Neck Neck exam general surgery: Present: full ROM, supple. Absent: tenderness, nuchal rigidity, thyromegaly - Respiratory Respiratory exam: Present: CTAB. Absent: chest wall tenderness, rales, rhonchi, tachypnea - Cardiovascular Cardiovascular exam: Present: RRR, +S1, +S2. Absent: diastolic murmur, systolic murmur - GI/Abdominal GI/Abdominal exam: Present: soft. Absent: tenderness - Extremities Exam Extremities exam: Present: warm, radial pulses palpable and symmetrical. Absent: calf tenderness, pedal edema, tenderness - Back Exam Back exam: Absent: CVA tenderness (L), CVA tenderness (R) - Neurological Exam Neurological exam: Present: alert, oriented X3, no focal deficits - Skin Skin exam: Present: dry, warm Internal Med - H&P Results - Labs CBC & Chem 7: 12/30/17 00:37 12/30/17 00:37 Labs: Short CBC 12/29/17 12/30/17 Range/Units 18:24 00:37 WBC 7.2 7.2 (4.3-11.1) K/mcL Hgb 11.6 11.5 (11.5-15.4) g/dL Hct 34.6 L 34.7 L (35.3-44.9) % Plt Count 223 228 (140-400) K/mcL Neutrophils # 4.2 4.1 (1.6-8.9) K/mcL BMP 12/29/17 12/30/17 18:24 00:37 Sodium 135 L 133 L Potassium 4.0 3.7 Chloride 101 100 Carbon Dioxide 29 28 BUN 12 13 Creatinine 0.52 L 0.57 L Glucose 215 H 270 H Calcium 9.7 9.8 Cardiac Enzymes 12/29/17 12/30/17 Range/Units 18:24 00:37 Troponin I < 0.03 < 0.03 (< 0.04) ng/mL - Impressions ITS Impressions Chest X-Ray 12/29/17 18:13 IMPRESSION: New somewhat suspicious nodule, lateral right apex. No acute airspace disease. RECOMMENDATION: To confirm a true lesion, upright PA and lateral views are recommended with removal of the cardiac monitoring leads and pads. If still present, elective follow-up thin-section chest CT would be recommended. D/ / Rene Faith MD / Rene Faith MD Interpreting Provider: Rene Faith MD - Assessment and plan (1) Essential hypertension Current Visit: No Status: Chronic (2) Type 2 diabetes mellitus with other circulatory complications Current Visit: No Status: Chronic (3) Tobacco abuse Current Visit: No Status: Chronic (4) COPD (chronic obstructive pulmonary disease) with emphysema Current Visit: No Status: Chronic Qualifiers: Emphysema type: panlobular Qualified Code(s): J43.1 - Panlobular emphysema (5) Atherosclerosis of [place] arteries of extremities with intermittent claudication, bilateral legs Current Visit: No Status: Chronic (6) Chest pain Current Visit: Yes Status: Acute Qualifiers: Chest pain type: unspecified Qualified Code(s): R07.9 - Chest pain, unspecified (7) Sleep apnea in adult Current Visit: Yes Status: Acute (8) Solitary pulmonary nodule Current Visit: Yes Status: Acute - Time Spent With Patient Total time spent is greater than 50% in coordination of care (as documented) at patient's floor/unit and/or counseling patient: - Attending Attestation I discussed the patient MANZANITA, past medical history, review of systems, lab data, imaging findings, and exam findings with Dr. Davis. I then saw and examined patient independently as well. I personally reviewed her x-ray and her EKG. She has a very subtle nodule in her right upper part of her chest on chest x- ray. Additionally, her EKG does suggest some ST flattening anterolaterally and some ischemic changes in V3 to V5 my opinion. Upon further questioning, patient states the chest pain she experiences is very similar to her anginal type chest pain. However, the severity and intensity were much more pronounced despite using Imdur. She states symptoms were identical to that which she had with her PCI/stent and LA years ago. She is a chronic heavy smoker. She did have recent stress test about a year and half ago which was negative. However, given her recurrent chest pain, known coronary artery disease, chronic angina, and symptoms mimicking her LA, I am inclined to pursue cardiac catheterization. I will defer, however, to cardiology. We will consult cardiology and ask for their guidance and opinion as to whether she should pursue heart catheterization. She may also benefit from some medication adjustments from a cardiac standpoint. She has not followed up with cardiology in several years, and I recommend she establish with and follow with cardiology regularly. Additionally, she is in dire need of smoking cessation. I counseled her and her son at length on the need for patient to quit smoking. I discussed with her the need to pursue CT of the chest given his pulmonary nodule and she is agreeable. We will also order serial troponins, EKGs, and echocardiogram. Further ischemic cardiac workup per cardiology. Other than my comments above and noted exam findings, I agree with Dr. Davis's assessment and plan.
[2017-12-29] MEDS ORDERED: Ipratropium/Albuterol Neb 3 ML IH PRN (23:02)
[2017-12-30 01:04] LABS: Basophils % 0.6 %; Eosinophils # 0.1 K/mcL (0.0-0.6); Eosinophils % 1.9 %; Hematocrit 34.7 % (35.3-44.9); Hemoglobin 11.5 g/dL (11.5-15.4); Immature Granulocytes % 0.3 % (0-4); Lymphocytes # 2.4 K/mcL (0.6-4.6); Lymphocytes % 33.8 %; Mean Corpuscular HGB Conc 33.1 g/dL (31.6-35.5); Mean Corpuscular Hemoglobin 28.3 pg (28.0-33.3); Mean Corpuscular Volume 85.5 fL (83.0-100.0); Mean Platelet Volume 10.3 fL (9.4-12.4); Monocytes # 0.4 K/mcL (0.0-1.3); Neutrophils # 4.1 K/mcL (1.6-8.9); Platelet Count 228 K/mcL (140-400); Red Blood Count 4.06 M/mcL (3.82-4.97); Red Cell Distribution Width 13.2 % (11.5-14.5); Segmented Neutrophils % 57.4 %
[2017-12-30 01:05] LABS: BUN/Creatinine Ratio 23 (6-26); Blood Urea Nitrogen 13 mg/dL (6-20); Calcium 9.8 mg/dL (8.6-10.3); Carbon Dioxide 28 mEq/L (23-29); Chloride 100 mEq/L (98-107); Glucose 270 mg/dL (70-105); Osmolality,Calculated 286 (280-300); Potassium 3.7 mEq/L (3.5-5.1); Sodium 133 mEq/L (136-145); eGFR For Non-African Americans > 60 (> 60)
[2017-12-30] MEDS: *HR* Heparin 5,000 UNIT/ML VIAL SQ SCH ×2 (05:31→12:28)
[2017-12-30] MEDS: Insulin LISPRO 300 UNITS/3 ML VIAL SQ SCH ×2 (06:18→12:26)
[2017-12-30] MEDS ORDERED: Insulin LISPRO 300 UNITS/3 ML VIAL SQ SCH (07:30)
[2017-12-30] MEDS ORDERED: Perflutren Lipid Microsphere 1.3 ML in 0.9 % Sodium Chloride 8.7 ML IVP ONE (09:01)
[2017-12-30 11:13] VITALS: BP 181/109
[2017-12-30] MEDS ORDERED: Isosorbide MONOnitrate (24 HR) 60 MG TAB.ER.24H PO SCH ×2 (11:42→12:00)
[2017-12-30] MEDS ORDERED: Metoprolol XL (24 HR) Succ 50 MG TAB.ER.24H PO SCH ×3 (11:42→21:00)
--- NOTE | 2017-12-30 13:59 | Cardiology Consult Note ---
<Nelida Mckeon - Last Filed: 12/30/17 14:04> Date of Encounter: 12/30/17 Time of Encounter: 13:00 Assessment and Plan (1) Atypical chest pain Current Visit: Yes Status: Acute Per cardiology: -ADmitted with chest pain, states different from previous angina. -Chest pain reproduceable with palpation. -Troponins negative x3. -ECG with non-specific T wave abnormalities noted. -TTE with LVEF preserved, no segmental wall motion abnormalities noted. -No further cardiac testing warranted. -Cardiology will sign off and will follow in outpatient setting. (2) CAD (coronary artery disease) Current Visit: Yes Status: Chronic Per cardiology: -Known CAD s/p previous PCI. -Last [facility] 05/2014 with patent stents, otherwise mild disease. -On asa, statin, BB, plavix, imdur. -See atypical chest pain as above. Qualifiers: Coronary Disease-Associated Artery/Lesion type: [place] artery [place] vs. transplanted heart: [place] heart Associated angina: without angina Qualified Code(s): I25.10 - Atherosclerotic heart disease of [place] coronary artery without angina pectoris Discussion w patient/family: The assessment and plan as outlined above was discussed with the patient and/or family members who expressed understanding and agreement. All questions were answered. Thank you for involving us in the care of your patient. Please call with any questions. Discussed and reveiwed with Dr.John Gonsalves. History of Present Illness Consult date: 12/29/17 Requesting physician: Shasha Beverly Consult reason: chest pain Chief complaint: chest pain History of present illness: Ms. Rosenthal is a 57 year old female with a relevant past medical history of CAD s/p PCI, carotid stenosis, HTN, DM, COPD, VALENCIA, PVD, diabetic neuropathy who presented to [facility] with complaints of chest pain. Patient states chest pain started while driving in a car. Deneis aggravating or alleviating factors. Patient denies current chest pain. Patient states chest pain completely differnent from previous angina. Patient denies worsening shortness of breath or increased fatigue. Past Med Surg Social Fam HX - Past Medical History Attestation: Yes The following information was validated with the patient. Source: patient, old records reviewed Medical history: COPD, coronary artery disease, diabetes, hypertension Additional medical history: sleep apnea with bipap. pvd Psychiatric history: depression - Past Surgical History Surgical History: , cholecystectomy Additional surgical history: heart stent. bilateral carpal tunnel - Social History Smoking Status: Current every day smoker Smokeless Tobacco Status: No Alcohol use: none Drug use: none Medications and Allergies RX: Albuterol Sulfate [Albuterol Inhaler] 2 puff IH Q4HR PRN 04/27/16 [History] RX: Aspirin 81 mg PO DAILY 04/27/16 [History] RX: Atorvastatin Calcium [Lipitor] 80 mg PO HS 04/27/16 [History] RX: Clopidogrel [Plavix] 75 mg PO DAILY 04/27/16 [History] RX: Fenofibrate [Lofibra] 160 mg PO DAILY 04/27/16 [History] RX: Furosemide [Lasix] 20 mg PO DAILY 04/27/16 [History] RX: Isosorbide MONOnitrate (24 HR) [Imdur] 60 mg PO DAILY 04/27/16 [History] RX: Lisinopril [Zestril] 20 mg PO BID 04/27/16 [History] RX: Metoprolol XL (24 HR) Succ [Toprol Xl] 50 mg PO BID 04/27/16 [History] RX: Meloxicam 15 mg PO DAILY PRN 12/30/17 [History] Sertraline [Zoloft] 50 mg PO DAILY 12/30/17 [History] metFORMIN [Glucophage] 850 mg PO BIDWM 12/30/17 [History] Allergy/AdvReac Type Severity Reaction Status Date / Time tramadol AdvReac Vomiting Verified 12/29/17 14:05 All Systems Review: The remainder of the systems were reviewed and are negative - Cardiovascular Cardiovascular: as per HPI, chest pain at rest Physical Examination Vital Signs, Last 4 Hours Temp Pulse Resp BP Pulse Ox 12/30/17 11:12 98.6 F 98 17 181/109 97 General: Conversant, No Apparent Distress HEENT: Atraumatic, Normocephaly, Mucus Membranes Moist Neck: No JVD, Normal carotid pulses Cardiac: Reg Rate and Rhythm, Normal S1 and S2, No Murmur Lungs: Normal Breath Sounds, No Wheeze, Rales, Rhonchi Neuro: Alert and responsive, No focal deficits noted Abdomen: Soft, Non-Tender Skin: No rashes noted on visualized skin Musculoskeletal: Other (Chest pain reproduceable with palpation) Extremities: No Clubbing, No Cyanosis, No Edema, Normal Pulses Results 12/30/17 00:37 12/30/17 00:37 Lab Results Impressions Chest X-Ray 12/29/17 18:13 IMPRESSION: New somewhat suspicious nodule, lateral right apex. No acute airspace disease. RECOMMENDATION: To confirm a true lesion, upright PA and lateral views are recommended with removal of the cardiac monitoring leads and pads. If still present, elective follow-up thin-section chest CT would be recommended. D/ / Rene Faith MD / Rene Faith MD Interpreting Provider: Rene Faith MD Chest CT 12/30/17 11:07 IMPRESSION: [place] of old granulomatous disease. No suspicious pulmonary nodule or acute airspace disease identified. Mild centrilobular emphysema. Calcified atheromatous plaque and coronary calcifications. D/ / Leno Ramos / Leno Ramos Interpreting Provider: Leno Ramos Echocardiogram 12/30/17 23:03 Impressions: LVEF 65%. Normal LV chamber size, wall thickness and systolic function. Indeterminate diastolic function. Normal right ventricular structure and function. No significant valvular dysfunction. Active Medications Albuterol/Ipratropium (Duoneb) 3 ml IH [id number] PRN PRN Reason: Shortness Of Breath/Wheezing Stop: 06/30/18 23:03 Aspirin (Aspirin) 81 mg PO DAILY AUGUST Stop: 07/02/18 09:01 Atorvastatin Calcium (Lipitor) 80 mg PO HS AUGUST Stop: 07/01/18 21:01 Clopidogrel Bisulfate (Plavix) 75 mg PO DAILY AUGUST Stop: 07/02/18 09:01 Dextrose/Water (Dextrose 50% (Syg)) 25 ml IVP AD PRN PRN Reason: Hypoglycemia Stop: 06/30/18 20:51 Glucagon (Glucagen) 1 mg IM ONCE PRN PRN Reason: Hypoglycemia Stop: 06/30/18 20:51 Glucose (Gluctose) 15 gm PO ONCE PRN PRN Reason: Hypoglycemia Stop: 06/30/18 20:51 Glucose (Gluctose) 30 gm PO ONCE PRN PRN Reason: Hypoglycemia Stop: 06/30/18 20:51 Heparin Sodium (Porcine) (Heparin) 5,000 unit SQ Q8HCO [facility], 1928[facility]1983 Stop: 07/01/18 06:01 Last Admin: 12/30/17 12:28 Dose: 5,000 unit Dextrose (Dextrose 5%) 1,000 mls @ 100 mls/hr IVC .Q10H PRN PRN Reason: HYPOGLYCEMIA Stop: 06/30/18 20:51 Insulin Human Lispro (Humalog) 0 units SQ Q6HR [facility], 1928[facility]1983; Protocol Stop: 07/01/18 06:01 Last Admin: 12/30/17 12:26 Dose: 4 units Isosorbide Mononitrate (Imdur) 60 mg PO DAILY [facility]1983 Stop: 07/01/18 12:01 Last Admin: 12/30/17 12:26 Dose: 60 mg Metoprolol Succinate (Toprol Xl) 50 mg PO BID [facility]1983 Stop: 07/01/18 12:01 Last Admin: 12/30/17 12:26 Dose: 50 mg Naloxone HCl (Narcan) 0.4 mg IVP Q2MIN PRN PRN Reason: SEE COMMENTS Stop: 06/30/18 20:44 Sertraline HCl (Zoloft) 50 mg PO DAILY [facility] Stop: 07/02/18 09:01 Laboratory Tests 12/29/17 12/30/17 12/30/17 18:24 00:37 00:37 Hgb 11.5 Creatinine 0.57 L Troponin I < 0.03 12/30/17 12/30/17 00:37 06:28 Hgb Creatinine Troponin I < 0.03 < 0.03 - Imaging and Cardiology Chest Xray: report reviewed Echo: report reviewed - EKG Interpretation EKG results cardiology: personally reviewed (ECG with SR, HR 92, non-specific T wave abnormalities noted.), other (Telemetry reviewed with average HR previous 12 hours noted to be 87, SR. PVCs noted.) Consult Discharge Plan - Plan Referrals: Korin Monge CNP [Primary Care Provider] - 01/02/18 11:00 am <Evgeny Gonsalves - Last Filed: 12/30/17 14:19> - Attending Attestation I have personally performed a face to face evaluation on this patient. I have reviewed and agree with the care plan. History and Exam by me shows: Atypical chest pain, FREDDY negative. No further cardiac testing needed. Assessment and Plan Discussion w patient/family: The assessment and plan as outlined above was discussed with the patient and/or family members who expressed understanding and agreement. All questions were answered. Thank you for involving us in the care of your patient. Please call with any questions. History of Present Illness History of present illness: Ms. Rosenthal is a 57 year old female All Systems Review: The remainder of the systems were reviewed and are negative Physical Examination Vital Signs, Last 4 Hours Temp Pulse Resp BP Pulse Ox 12/30/17 11:12 98.6 F 98 17 181/109 97 Results 12/30/17 00:37 12/30/17 00:37 Lab Results 12/29/17 12/29/17 12/29/17 18:24 18:24 18:24 WBC 7.2 Hgb 11.6 Hct 34.6 L Plt Count 223 INR 1.0 APTT 34.1 Sodium 135 L Potassium 4.0 Chloride 101 Carbon Dioxide 29 BUN 12 Creatinine 0.52 L Glucose 215 H Calcium 9.7 Troponin I < 0.03 B-Natriuretic Peptide 12/29/17 12/30/17 12/30/17 18:24 00:37 00:37 WBC 7.2 Hgb 11.5 Hct 34.7 L Plt Count 228 INR APTT Sodium 133 L Potassium 3.7 Chloride 100 Carbon Dioxide 28 BUN 13 Creatinine 0.57 L Glucose 270 H Calcium 9.8 Troponin I B-Natriuretic Peptide 72 12/30/17 12/30/17 00:37 06:28 WBC Hgb Hct Plt Count INR APTT Sodium Potassium Chloride Carbon Dioxide BUN Creatinine Glucose Calcium Troponin I < 0.03 < 0.03 B-Natriuretic Peptide
--- NOTE | 2017-12-30 15:06 | Discharge Summary ---
- NOTES TO OUTPATIENT PROVIDER Notes to Outpatient Provider: Patient hospitalized with chest pain. Evaluated by cardiology recommended no further workup. Troponins have been negative. Echocardiogram reviewed. Shows EF of 65% with normal wall motion. Can follow- up outpatient with PCP and cardiology. She did have chest x-ray done which showed possible lung nodules. Underwent CT scan of the chest which showed chronic granulomatous disease and COPD changes. Can be followed outpatient. Date of Encounter: 12/30/17 Time of Encounter: 15:03 - Discharge Diagnosis (1) Chest pain Priority: Primary Status: Acute Qualifiers: Chest pain type: intercostal pain Qualified Code(s): R07.82 - Intercostal pain (2) Essential hypertension Priority: Secondary Status: Chronic (3) Type 2 diabetes mellitus with other circulatory complications Priority: Secondary Status: Chronic (4) Tobacco abuse Priority: Secondary Status: Chronic (5) COPD (chronic obstructive pulmonary disease) with emphysema Priority: Secondary Status: Chronic Qualifiers: Emphysema type: panlobular Qualified Code(s): J43.1 - Panlobular emphysema (6) 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 Rosenthal is a 57 year old female Patient with history of COPD, diabetes, CAD, hypertension who hospitalized with chest pain. Evaluated by cardiology recommended no further workup. Troponins have been negative. Echocardiogram reviewed. Shows EF of 65% with normal wall motion. Can follow-up outpatient with PCP and cardiology. She did have chest x-ray done which showed possible lung nodules. Underwent CT scan of the chest which showed chronic granulomatous disease and COPD changes. Can be followed outpatient. Patient reports limited financial resources and as such has not been taking all her medications as prescribed. 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 Stressed on her the importance of taking medications as prescribed especially for her diabetes hypertension and coronary artery disease. Discharge discussed with: patient, nurse, case management - Time Spent with Patient Total time spent providing and/or coordinating discharge services: Less than 30 minutes (25 min) - Discharge Medications Prescriptions: Atorvastatin [Lipitor] 80 mg PO HS #60 tablet Clopidogrel [Plavix] 75 mg PO DAILY #30 tablet Isosorbide MONOnitrate (24 HR) [Imdur] 60 mg PO DAILY #30 tab.er.24h Lisinopril [Zestril] 20 mg PO BID #60 tablet metFORMIN [Glucophage] 850 mg PO BIDWM #60 tablet Metoprolol XL (24 HR) Succ [Toprol Xl] 50 mg PO BID #60 tab.er.24h Home Medications: Albuterol Sulfate [Albuterol Inhaler] 2 puff IH Q4HR PRN 04/27/16 [History] Aspirin 81 mg PO DAILY 04/27/16 [History] Fenofibrate [Lofibra] 160 mg PO DAILY 04/27/16 [History] Furosemide [Lasix] 20 mg PO DAILY 04/27/16 [History] Atorvastatin [Lipitor] 80 mg PO HS #60 tablet 12/30/17 [Rx] Clopidogrel [Plavix] 75 mg PO DAILY #30 tablet 12/30/17 [Rx] Isosorbide MONOnitrate (24 HR) [Imdur] 60 mg PO DAILY #30 tab.er.24h 12/30/17 [Rx] Lisinopril [Zestril] 20 mg PO BID #60 tablet 12/30/17 [Rx] Meloxicam 15 mg PO DAILY PRN 12/30/17 [History] Metoprolol XL (24 HR) Succ [Toprol Xl] 50 mg PO BID #60 tab.er.24h 12/30/17 [Rx] Sertraline [Zoloft] 50 mg PO DAILY 12/30/17 [History] metFORMIN [Glucophage] 850 mg PO BIDWM #60 tablet 12/30/17 [Rx] Allergies/Adverse Reactions: Allergy/AdvReac Type Severity Reaction Status Date / Time tramadol AdvReac Vomiting Verified 12/29/17 14:05 Date of admission: 12/29/17 20:27 Primary care physician: Korin Monge CNP Consults: 12/29/17 23:09 Consult to Cardiology [CONS] Routine Comment: Consulting Provider: Cardiology Mary Jo Reason for Consult: ACS rule out, h/o angina Call Completed: No Discharging clinician: Greyson Johnson Anticipated date of discharge: 12/30/17 - Constitutional Vitals: Temp Pulse Resp BP Pulse Ox 98.6 F 98 17 181/109 97 12/30/17 11:12 12/30/17 11:12 12/30/17 11:12 12/30/17 11:12 12/30/17 11:12 General appearance: Present: cooperative, A&O X 3, pleasant, no acute distress Exam: . - Respiratory Respiratory exam: Present: prolonged expiratory phase, wheezes. Absent: accessory muscle use, rales, rhonchi - Cardiovascular Cardiovascular exam: Present: RRR, +S1, +S2. Absent: diastolic murmur, gallop, rubs, systolic murmur Additional comments: Reproducible chest wall tenderness - Patient Status Disposition: Home, Self-Care Condition: Good Functional capacity at discharge: independent ambulation Overall status at discharge: patient is progressing back to baseline - Discharge Instructions Instructions: Metoprolol (By mouth), Lisinopril (By mouth), Isosorbide Mononitrate (By mouth), Metformin (By mouth), Atorvastatin (By mouth), Cl opidogrel (By mouth), Chest Pain (DC), Diabetes Mellitus Type 2 in Adults (DC), Chronic Obstructive Pulmonary Disease (DC), Chronic Hypertension (DC) Follow Up With: Korin Monge CNP [Primary Care Provider] - 01/02/18 11:00 am Forms: ED Satisfaction Letter - Diet and Activity Activity: increase activity as tolerated Diet: diabetic diet, low fat, low cholesterol, low salt diet
[2017-12-31] MEDS ORDERED: Aspirin 81 MG TAB.CHEW PO SCH (09:00)
[2017-12-31] MEDS ORDERED: Isosorbide MONOnitrate (24 HR) 60 MG TAB.ER.24H PO SCH (09:00)
--- NOTE | 2017-12-31 12:03 | Electrocardiograph Report ---
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
--- NOTE | 2017-12-31 12:07 | Electrocardiograph Report ---
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
== END 2017-12-30 15:37 | disposition home or self-care (01) ==
LOC: EMEROOARM 17:51 → 3BNU 17:51 → SUATTDRO 20:27 → 3BNU 20:36
PROVIDERS: ADMIT Pediatrics; ATTEND Internal Medicine